=== PATIENT | female | born 1975 ===

== ENCOUNTER 2023-05-12 06:30 | Day surgery (SDC) | payer OTHER ==
[~2023-05-12] VITALS: Ht 182.9 cm; Wt 99.8 kg
[~2023-05-12 06:30] MED LIST: ALBUTEROL0.63 MG/3; BUDEO.25; CARAFATE1 GM/10 ML; CARAFATE1 GM/10 ML PO; CELEBREX200MG; CLARITIN10 M1 PO; FEXMID7.5 MG PO; FIORICET; FOLIC ACID20 MG; INTEGRA PLUS C1 EACH; IPRAT-ALBUT 0.5-3 ML; LUNESTA3 MG; LYRICA225 MG; MAGNESIUM500 MG; NUCYNTA ER100 MG; OMEGA-31000 MG; PEPCID AC20 MG PO; PHENERGAN25 MG PO; PROTONIX40 MG PO; RELAFEN DS1000 MG; REYVOW PO; SEROQUEL XR50 MG PO; SEROQUEL200 MG PO; SINGULAIR10 MG PO; TORADOL60 MG; VITAMIN B 2 PO; VITAMIN B122500 MC1 PO; VITAMIN D350 MC6; VYEPTI100 MG/1 M; ZTLIDO1 EACH; [UNRECOGNIZED DRUG - OTHER]
[2023-05-12] MEDS ORDERED: CEFAZOLIN SODIUM 1,000 MG VIAL ONE (12:24)
[2023-05-12] MEDS ORDERED: POVIDONE-IODINE 118 ML BOTT TOP ONE ×2 (12:26→13:30)
[2023-05-12] MEDS ORDERED: CEFAZOLIN SODIUM 1,000 MG VIAL IV SCH (13:30)
[2023-05-12] MEDS ORDERED: MORGIDOX100 MG PO (14:57)
[2023-05-12] MEDS ORDERED: IBU800 MG PO (14:58)
== END 2023-05-12 17:50 | disposition home or self-care (01) ==
LOC: CIR.AMB 06:30
PROVIDERS: ATTEND Obstetrics & Gynecology
DX: D06.9 Carcinoma in situ of cervix, unspecified (principal); N93.8 Other specified abnormal uterine and vaginal bleeding; Z88.2 Allergy status to sulfonamides; Z88.5 Allergy status to narcotic agent